=== PATIENT | female | born 1990 | race American Indian/Alaskan Native ===

== ENCOUNTER 2016-08-19 13:26 | Inpatient (IN) | payer MEDICAID ==
--- NOTE | 2016-08-19 14:04 | ED PDOC ---
Arrival/HPI - General Chief Complaint: High Blood Sugar Time Seen by Provider: 08/19/16 13:41 Historian: Patient - History of Present Illness Narrative History of Present Illness (Text): 08/19/16 14:01 26 year old female whose past medical history includes diabetes presents to the emergency department complaining of fluctuating blood sugar for the past 2 weeks. She states she has seen her PMD and is on Lantus. Patient reports her blood sugar has been as low as 200 and as high as 600. She states she feels dizzy at times, weak, thirsty. PMD: Dr. Vivek Christensen Time/Duration: > week Symptom Onset: Gradual Symptom Course: Unchanged Modifying Factors (Text): None Associated Symptoms (Text): None Past Medical History - Provider Review Nursing Documentation Reviewed: Yes - Infectious Disease Hx of Infectious Diseases: None - Tetanus Immunization Tetanus Immunization: Unknown - Cardiac Hx Hypertension: Yes - Pulmonary Hx Respiratory Disorders: No - Neurological Hx Dizziness: Yes - HEENT Hx HEENT Disorder: No - Renal Hx Renal Disorder: No - Endocrine/Metabolic Hx Diabetes Mellitus Type 2: Yes - Hematological/Oncological Hx Blood Disorders: No - Integumentary Hx Dermatological Disorder: No - Musculoskeletal/Rheumatological Hx Falls: No - Gastrointestinal Hx Gastrointestinal Disorders: No - Genitourinary/Gynecological Hx Genitourinary Disorders: No - Psychiatric Hx Anxiety: Yes Hx Bipolar Disorder: Yes Hx Depression: Yes Hx Substance Use: No - Past Surgical History Past Surgical History: Non-Contributing - Anesthesia Hx Anesthesia: No - Suicidal Assessment Feels Threatened In Home Enviroment: No Family/Social History - Physician Review Nursing Documentation Reviewed: Yes Family/Social History: Unknown Family HX Smoking Status: Never Smoked Hx Alcohol Use: No Hx Substance Use: No Allergies/Home Meds Allergies/Adverse Reactions: Allergies No Known Allergies Allergy (Verified 08/19/16 13:37) Home Medications: Home Meds Medication Instructions Recorded Confirmed Cholecalciferol (Vitamin D3) 1 cap PO Sat08/19/16 08/19/16 [Vitamin D3] Empagliflozin [Jardiance] 10 mg PO DAILY 08/19/16 08/19/16 Enalapril Maleate [Vasotec] 5 mg PO DAILY 08/19/16 08/19/16 Insulin Glargine, Recombina 10 unit SC BID 08/19/16 08/19/16 [Lantus] Review of Systems - Physician Review All systems were reviewed & negative as marked: Yes - Review of Systems Constitutional: Other (Fluctuating blood sugar measurements) Respiratory: absent: SOB Cardiovascular: absent: Chest Pain Gastrointestinal: absent: Abdominal Pain, Vomiting Neurological: absent: Dizziness Physical Exam - Physical Exam Narrative Physical Exam (Text): Constitutional: No acute distress. Head: Normocephalic. Atraumatic. Eyes: PERRL. ENT: Moist mucous membranes. Neck: Supple. Cardiovascular: Regular rate. Chest: No tenderness. Respiratory: Clear to auscultation bilaterally. GI: Soft. Nontender. Nondistended. Back: No CVA tenderness. Musculoskeletal: No tenderness or swelling of extremities. Skin: No rash. Neurologic: Alert, no focal deficit. Vital Signs Reviewed: Yes Vital Signs Temp Pulse Resp BP Pulse Ox 08/19/16 16:56 89 18 135/74 97 08/19/16 15:26 98 H 18 138/79 97 08/19/16 13:42 98.9 F 104 H 17 141/84 97 Temperature: Afebrile Blood Pressure: Normal Pulse: Tachycardic Respiratory Rate: Normal Appearance: Positive for: Well-Appearing, Non-Toxic, Comfortable Pain Distress: None Mental Status: Positive for: Alert and Oriented X 3 Finger Stick Blood Glucose: 313 Medical Decision Making ED Course and Treatment: Impression: 26 year old female whose past medical history includes diabetes presents to the emergency department complaining of fluctuating blood sugar for the past 2 weeks. Differential Diagnosis include but are not limited to: Plan: -- Labs -- Reassess and disposition Prior Visits: Notes and results from previous visits were reviewed. Patient last seen in ED on 08/11/16 for increased thirst, urinary frequency and blurry vision and discharged home. Progress Notes: The patient is with pH 7.28 on VBG pH and bicarb 20 with ketones >80 in urine. Patient still appears well but with evidence of dehydration, mild DKA. Accepted for admission by Dr. Cam to hospitalist service. IVF initiated in ER. - Lab Interpretations Lab Results: 08/19/16 14:20 08/19/16 14:20 Lab Results 08/19/16 14:40: Urine Color Straw, Urine Appearance Clear, Urine pH 6.0, Ur Specific [place] 1.015, Urine Protein Negative, Urine Glucose (UA) >=1000, Urine Ketones >=80, Urine Blood Trace-lysed H, Urine Nitrate Negative, Urine Bilirubin Negative, Urine Urobilinogen 0.2, Ur Leukocyte Esterase Negative, Urine RBC 2 - 5, Urine WBC 2 - 5, Ur Epithelial Cells 6 - 8 08/19/16 14:20: Sodium 134, Potassium 4.4, Chloride 97 L, Carbon Dioxide 20 L, Anion Gap 21 H, BUN 12, Creatinine 0.7, Est GFR ( Amer) > 60, Est GFR ( Non-Af Amer) > 60, Random Glucose 347 H* D, Calcium 9.9, Total Bilirubin 0.7, AST 19, ALT 31, Alkaline Phosphatase 106, Total Protein 8.5 H, Albumin 4.5, Globulin 4.0, Albumin/Globulin Ratio 1.1 08/19/16 14:20: pO2 40, VBG pH 7.28 L, VBG pCO2 48.0, VBG HCO3 22.6, VBG O2 Sat (Calc) 73.4 H, VBG Base Excess -4.4 L 08/19/16 14:20: WBC 6.0, RBC 4.71, Hgb 14.6, Hct 41.2, MCV 87.5, MCH 31.0, MCHC 35.4, RDW 12.9, Plt Count 301, MPV 11.3 H, Gran % 60.0, Lymph % (Auto) 33.2, Harper % (Auto) 6.0, Eos % (Auto) 0.5 L, Baso % (Auto) 0.3, Gran # 3.60, Lymph # 2.0, Harper # 0.4, Eos # 0.0, Baso # 0.02 - Medication Orders Current Medication Orders: Heparin Sodium (Porcine) (Heparin) 5,000 units SC Q12 [facility] PRN Reason: Protocol Sodium Chloride (Sodium Chloride 0.9%) 1,000 mls @ 125 mls/hr IV .Q8H [facility] Last Admin: 08/19/16 17:13 Dose: 125 mls/hr Insulin Detemir (Levemir) 5 unit SC Q12H [facility] Insulin Human Regular (Humulin R Med) 0 units SC ACHS [facility] PRN Reason: Protocol Lisinopril (Zestril) 5 mg PO DAILY [facility] Pantoprazole Sodium (Protonix Ec Tab) 40 mg PO 0630 [facility] Discontinued Medications Sodium Chloride (Sodium Chloride 0.9%) 1,000 mls @ 999 mls/hr IV .Q1H1M [facility] Stop: 08/19/16 15:51 Last Admin: 08/19/16 15:30 Dose: 999 mls/hr - Scribe Statement The provider has reviewed the documentation as recorded by the Halina Hernandez Provider Scribe Attestation: All medical record entries made by the Halina were at my direction and personally dictated by me. I have reviewed the chart and agree that the record accurately reflects my personal performance of the history, physical exam, medical decision making, and the department course for this patient. I have also personally directed, reviewed, and agree with the discharge instructions and disposition. Disposition/Present on Arrival - Present on Arrival Any Indicators Present on Arrival: Yes History of DVT/PE: No History of Uncontrolled Diabetes: Yes Urinary Catheter: No History of Decub. Ulcer: No History Surgical Site Infection Following: None - Disposition Have Diagnosis and Disposition been Completed?: Yes Diagnosis: Hyperglycemia due to type 2 diabetes mellitus, Dehydration Disposition: HOSPITALIZED Disposition Time: 15:29 Patient Plan: Admission Condition: FAIR
[2016-08-19 14:27] LABS: ADD MANUAL DIFF? NO
[2016-08-19 14:31] LABS: BASO # 0.02 K/mm3 (0.0-2.0); BASO % 0.3 % (0.0-3.0); EOS % 0.5 % (1.5-5.0); HEMATOCRIT 41.2 % (36.0-48.0); LYMPH % 33.2 % (22.0-35.0); MEAN CELL VOLUME 87.5 fL (80.0-105.0); MEAN CORPUSCULAR HGB CONC 35.4 g/dl (31.0-37.0); MEAN PLATELET VOLUME 11.3 fl (7.0-11.0); MONO # 0.4 (0.1-0.6); PLATELET COUNT 301 10^3/uL (120.0-450.0); RED CELL DISTRIBUTION WIDTH 12.9 % (11.5-14.5)
[2016-08-19 14:33] LABS: VENOUS BLOOD GAS BASE EXCESS -4.4 mmol/L (0.0-2.0); VENOUS BLOOD PH 7.28 (7.32-7.43)
[2016-08-19 14:41] LABS: ALB/GLOB RATIO 1.1 (1.1-1.8); ALKALINE PHOSPHATASE 106 U/L (38-133); ALT/SGPT 31 U/L (7-56); AST/SGOT 19 U/L (15-39); BILIRUBIN,TOTAL 0.7 mg/dL (0.2-1.3); BLOOD UREA NITROGEN 12 mg/dL (7-21); CALCIUM 9.9 mg/dL (8.4-10.5); CARBON DIOXIDE 20 mmol/L (21-33); CHLORIDE 97 mmol/L (98-107); GFR AFRICAN-AMERICAN > 60; POTASSIUM 4.4 mmol/L (3.6-5.0); SODIUM 134 mmol/L (132-148); TOTAL PROTEIN 8.5 g/dL (5.8-8.3)
[2016-08-19 14:44] LABS: GLUCOSE,RANDOM 347 mg/dL (70-110)
[2016-08-19] MEDS ORDERED: Sodium Chloride 0.9% 1,000 ML IV STA (14:51)
[2016-08-19 14:59] LABS: URINE BILIRUBIN NEGATIVE (NEGATIVE); URINE BLOOD TRACE-LYSED (NEGATIVE); URINE GLUCOSE (UA) >=1000 mg/dL (NEGATIVE); URINE KETONE >=80 mg/dL (NEGATIVE); URINE LEUKOCYTE ESTERASE NEGATIVE Leu/uL (NEGATIVE); URINE PROTEIN NEGATIVE mg/dL (<30 mg/dL); URINE UROBILINOGEN 0.2 E.U./dL (<1 E.U./dL)
[2016-08-19 15:00] LABS: URINE APPEARANCE CLEAR (CLEAR); URINE COLOR STRAW (YELLOW)
[2016-08-19 16:46] LABS: ARTERIAL BLOOD GAS HCO3 14.4 mmol/L (21-28); ARTERIAL BLOOD GAS O2 CAPACITY 18.4 mL/dl (16-24); ARTERIAL BLOOD GAS O2 CONTENT 18.1 ML/dl (15-23); ARTERIAL BLOOD GAS PH 7.32 (7.35-7.45); CARBOXYHEMOGLOBIN 1.7 % (0.5-1.5); HHB 1.6 % (0-5); METHEMOGLOBIN 0.7 % (0.0-3.0)
[2016-08-19] MEDS ORDERED: Sodium Chloride 0.9% 1,000 ML IV SCH (17:00)
[2016-08-19 17:21] LABS: ALB/GLOB RATIO 1.1 (1.1-1.8); ALKALINE PHOSPHATASE 94 U/L (38-133); ALT/SGPT 30 U/L (7-56); AST/SGOT 20 U/L (15-39); BILIRUBIN,TOTAL 0.6 mg/dL (0.2-1.3); BLOOD UREA NITROGEN 11 mg/dL (7-21); CALCIUM 8.9 mg/dL (8.4-10.5); CARBON DIOXIDE 18 mmol/L (21-33); CHLORIDE 103 mmol/L (98-107); GFR AFRICAN-AMERICAN > 60; GLUCOSE,RANDOM 196 mg/dL (70-110); POTASSIUM 4.2 mmol/L (3.6-5.0); SODIUM 135 mmol/L (132-148); TOTAL PROTEIN 8.1 g/dL (5.8-8.3)
--- NOTE | 2016-08-19 17:59 | CP.PCM.HP ---
History of Present Illness - History of Present Illness History of Present Illness: CC: "High sugars at home" HPI: This is a 26 year old female with past medical history of recently diagnosed hypertension and diabetes who presents with complaint of generalized weakness and elevated blood sugars at home. She states she was recently started on insulin about 2 weeks ago. Her fingersticks at home have been ranging above 500. She admits to generalized fatigue, polyuria, polydipsia and blurred vision. She denies any fever, chills, chest pain, abdominal pain, nausea or vomiting. She admits to getting dyspneic with exertion at times. PMD: Dr. Christensen PMH: hypertension PSH: denies Home Medications: vasotec 5 mg, lantus 10 units bid, jardiance 10 mg daily Social History: lives with family; denies smoking, alcohol or illicit drug use ; works at [employer] Present on Admission - Present on Admission Any Indicators Present on Admission: Yes History of Uncontrolled Diabetes: Yes Review of Systems - Review of Systems All systems: reviewed and no additional remarkable complaints except - Constitutional Constitutional: As Per HPI - EENT Eyes: absent: Blurred Vision Ears: absent: Dizziness - Cardiovascular Cardiovascular: Dyspnea on Exertion. absent: Chest Pain, Dyspnea, Edema - Respiratory Respiratory: absent: Cough, Dyspnea - Gastrointestinal Gastrointestinal: absent: Abdominal Pain, Nausea, Vomiting - Genitourinary Genitourinary: As Per HPI - Musculoskeletal Musculoskeletal: As Per HPI - Neurological Neurological: Weakness - Endocrine Endocrine: As Per HPI, Polydipsia, Polyuria Past Patient History - Infectious Disease Hx of Infectious Diseases: None - Tetanus Immunizations Tetanus Immunization: Unknown - Past Medical History & Family History Past Medical History?: Yes - Past Social History Smoking Status: Never Smoked Alcohol: None Drugs: Denies Home Situation {Lives}: With Family - CARDIAC Hx Hypertension: Yes - PULMONARY Hx Respiratory Disorders: No - NEUROLOGICAL Hx Dizziness: Yes - HEENT Hx HEENT Problems: No - RENAL Hx Chronic Kidney Disease: No - ENDOCRINE/METABOLIC Hx Diabetes Mellitus Type 2: Yes - HEMATOLOGICAL/ONCOLOGICAL Hx Blood Disorders: No - INTEGUMENTARY Hx Dermatological Problems: No - MUSCULOSKELETAL/RHEUMATOLOGICAL Hx Falls: No - GASTROINTESTINAL Hx Gastrointestinal Disorders: No - GENITOURINARY/GYNECOLOGICAL Hx Genitourinary Disorders: No - PSYCHIATRIC Hx Substance Use: No - SURGICAL HISTORY Hx Surgeries: No - ANESTHESIA Hx Anesthesia: No Meds Allergies/Adverse Reactions: Allergies Allergy/AdvReac Type Severity Reaction Status Date / Time No Known Allergies Allergy Verified 08/19/16 13:37 Physical Exam - Constitutional Appears: Well, No Acute Distress - Head Exam Head Exam: NORMAL INSPECTION - ENT Exam ENT Exam: Mucous Membranes Moist - Neck Exam Neck exam: Positive for: Full Rom - Respiratory Exam Respiratory Exam: Clear to Auscultation Bilateral. absent: Rales, Wheezes - Cardiovascular Exam Cardiovascular Exam: REGULAR RHYTHM, +S1, +S2 - GI/Abdominal Exam GI & Abdominal Exam: Normal Bowel Sounds, Soft. absent: Organomegaly, Tenderness - Extremities Exam Extremities exam: Positive for: normal inspection - Neurological Exam Neurological exam: Alert, Oriented x3 - Psychiatric Exam Psychiatric exam: Normal Affect, Normal Mood Results - Vital Signs Recent Vital Signs: Last Vital Signs Temp 98.9 F 08/19/16 13:42 Pulse 98 H 08/19/16 15:26 Resp 18 08/19/16 15:26 BP 138/79 08/19/16 15:26 Pulse Ox 97 08/19/16 15:26 - Labs Result Diagrams: 08/19/16 14:20 08/19/16 17:00 Labs: Laboratory Results - last 24 hr 08/19/16 08/19/16 08/19/16 14:20 14:20 14:20 WBC 6.0 RBC 4.71 Hgb 14.6 Hct 41.2 MCV 87.5 MCH 31.0 MCHC 35.4 RDW 12.9 Plt Count 301 MPV 11.3 H Gran % 60.0 Lymph % (Auto) 33.2 Gregg % (Auto) 6.0 Eos % (Auto) 0.5 L Baso % (Auto) 0.3 Gran # 3.60 Lymph # 2.0 Gregg # 0.4 Eos # 0.0 Baso # 0.02 pO2 40 VBG pH 7.28 L VBG pCO2 48.0 VBG HCO3 22.6 VBG O2 Sat (Calc) 73.4 H VBG Base Excess -4.4 L Sodium 134 Potassium 4.4 Chloride 97 L Carbon Dioxide 20 L Anion Gap 21 H BUN 12 Creatinine 0.7 Est GFR ( Amer) > 60 Est GFR (Non-Af Amer) > 60 Random Glucose 347 H* D Calcium 9.9 Total Bilirubin 0.7 AST 19 ALT 31 Alkaline Phosphatase 106 Total Protein 8.5 H Albumin 4.5 Globulin 4.0 Albumin/Globulin Ratio 1.1 Urine Color Urine Appearance Urine pH Ur Specific [place] Urine Protein Urine Glucose (UA) Urine Ketones Urine Blood Urine Nitrate Urine Bilirubin Urine Urobilinogen Ur Leukocyte Esterase Urine RBC Urine WBC Ur Epithelial Cells 08/19/16 14:40 WBC RBC Hgb Hct MCV MCH MCHC RDW Plt Count MPV Gran % Lymph % (Auto) Gregg % (Auto) Eos % (Auto) Baso % (Auto) Gran # Lymph # Gregg # Eos # Baso # pO2 VBG pH VBG pCO2 VBG HCO3 VBG O2 Sat (Calc) VBG Base Excess Sodium Potassium Chloride Carbon Dioxide Anion Gap BUN Creatinine Est GFR ( Amer) Est GFR (Non-Af Amer) Random Glucose Calcium Total Bilirubin AST ALT Alkaline Phosphatase Total Protein Albumin Globulin Albumin/Globulin Ratio Urine Color Straw Urine Appearance Clear Urine pH 6.0 Ur Specific [place] 1.015 Urine Protein Negative Urine Glucose (UA) >=1000 Urine Ketones >=80 Urine Blood Trace-lysed H Urine Nitrate Negative Urine Bilirubin Negative Urine Urobilinogen 0.2 Ur Leukocyte Esterase Negative Urine RBC 2 - 5 Urine WBC 2 - 5 Ur Epithelial Cells 6 - 8 - EKG Data EKG comments: not available in ER Assessment & Plan - Assessment and Plan (Free Text) Plan: 26 year old female with past medical history of diabetes and hypertension who presents with uncontrolled blood sugars at home. Complaint of generalized weakness, polyuria, polydipsia. CXR is pending. 1. Uncontrolled diabetes - Initial anion gap was mildly elevated at 17. + Ketones in UA. Consider early DKA. She received iv bolus in ER. Repeat anion gap is improved to 14. Will continue to aggressive ivf. Resume lantus and check A1c. Continue with insulin ss and fingerstick checks. 2. Hypertension - Continue with enalapril. 3. Obesity - Counselled on diet modifications, weight loss and exercise. Lipid panel ordered for AM. Continue with protonix for GI prophylaxis and heparin for DVT prophylaxis.
[2016-08-19 20:32] VITALS: BMI 37.7
[2016-08-19] MEDS ORDERED: Insulin Detemir 100 units/ml Vial (Levemir) SC SCH (22:00)
[2016-08-19] MEDS: Insulin Detemir 100 units/ml Vial (Levemir) SC SCH (22:03)
[2016-08-19] MEDS: Insulin Reg-MEDIUM-Coverage SC SCH (22:03)
[2016-08-20] MEDS: Pantoprazole 40 mg EC Tab PO SCH (05:39)
--- NOTE | 2016-08-20 07:13 | RAD ---
HISTORY: dyspnea COMPARISON: Chest x-ray performed 12/23/13 TECHNIQUE: Chest, one view. FINDINGS: Examination limited by habitus and hypoinflation. The patient's chin obscures evaluation of the lung apices. LUNGS: No focal consolidation. Please note that chest x-ray has limited sensitivity for the detection of pulmonary masses. PLEURA: No significant pleural effusion identified. No definite pneumothorax . CARDIOVASCULAR: Heart size appears top normal. OSSEOUS STRUCTURES: No acute osseous abnormality identified. VISUALIZED UPPER ABDOMEN: Unremarkable. OTHER FINDINGS: None. IMPRESSION: No focal consolidation, significant pleural effusion, or definite pneumothorax identified.
[2016-08-20 07:51] VITALS: RESP 20
[2016-08-20] MEDS: Insulin Reg-MEDIUM-Coverage SC SCH ×4 (08:00→22:25)
[2016-08-20 08:57] LABS: HEMATOCRIT 35.6 % (36.0-48.0); MEAN CELL VOLUME 88.6 fL (80.0-105.0); MEAN CORPUSCULAR HEMOGLOBIN 30.6 pg (25.0-35.0); MEAN CORPUSCULAR HGB CONC 34.6 g/dl (31.0-37.0); MEAN PLATELET VOLUME 11.2 fl (7.0-11.0); WHITE BLOOD COUNT 3.7 10^3/ul (4.5-11.0)
[2016-08-20 09:08] LABS: ALB/GLOB RATIO 1.1 (1.1-1.8); ALKALINE PHOSPHATASE 82 U/L (38-133); ALT/SGPT 37 U/L (7-56); AST/SGOT 18 U/L (15-39); BILIRUBIN,TOTAL 0.7 mg/dL (0.2-1.3); BLOOD UREA NITROGEN 8 mg/dL (7-21); CALCIUM 8.8 mg/dL (8.4-10.5); CARBON DIOXIDE 19 mmol/L (21-33); CHLORIDE 106 mmol/L (98-107); CHOLESTEROL 165 mg/dL (130-200); GFR AFRICAN-AMERICAN > 60; GLUCOSE,RANDOM 221 mg/dL (70-110); POTASSIUM 4.2 mmol/L (3.6-5.0); SODIUM 135 mmol/L (132-148); TOTAL PROTEIN 6.9 g/dL (5.8-8.3)
[2016-08-20] MEDS: Insulin Detemir 100 units/ml Vial (Levemir) SC SCH ×2 (10:19→22:23)
[2016-08-20] MEDS: Omega-3-Acid Ethyl Esters 1 GM Cap PO SCH ×2 (10:19→17:32)
--- NOTE | 2016-08-20 15:31 | CP.PCM.DIS ---
Provider - Provider Date of Admission: 08/19/16 16:12 Attending physician: Dawit Levin MD Primary care physician: Vivek Christensen Consults: none Time Spent in preparation of Discharge (in minutes): 25 Hospital Course - Lab Results Lab Results: Most Recent Lab Values WBC 3.7 10^3/ul (4.5-11.0) L D 08/20/16 08:15 RBC 4.02 10^6/uL (3.5-6.1) 08/20/16 08:15 Hgb 12.3 gm/dL (12.0-16.0) 08/20/16 08:15 Hct 35.6 % (36.0-48.0) L 08/20/16 08:15 MCV 88.6 fL (80.0-105.0) 08/20/16 08:15 MCH 30.6 pg (25.0-35.0) 08/20/16 08:15 MCHC 34.6 g/dl (31.0-37.0) 08/20/16 08:15 RDW 13.0 % (11.5-14.5) 08/20/16 08:15 Plt Count 245 10^3/uL (120.0-450.0) 08/20/16 08:15 MPV 11.2 fl (7.0-11.0) H 08/20/16 08:15 Gran % 60.0 % (50.0-68.0) 08/19/16 14:20 Lymph % (Auto) 33.2 % (22.0-35.0) 08/19/16 14:20 Kay % (Auto) 6.0 % (1.0-6.0) 08/19/16 14:20 Eos % (Auto) 0.5 % (1.5-5.0) L 08/19/16 14:20 Baso % (Auto) 0.3 % (0.0-3.0) 08/19/16 14:20 Gran # 3.60 (1.4-6.5) 08/19/16 14:20 Lymph # 2.0 (1.2-3.4) 08/19/16 14:20 Kay # 0.4 (0.1-0.6) 08/19/16 14:20 Eos # 0.0 (0.0-0.7) 08/19/16 14:20 Baso # 0.02 K/mm3 (0.0-2.0) 08/19/16 14:20 pCO2 28 mm/Hg (35-45) L 08/19/16 16:35 pO2 84.0 mm/Hg (80-100) 08/19/16 16:35 HCO3 14.4 mmol/L (21-28) L 08/19/16 16:35 ABG pH 7.32 (7.35-7.45) L 08/19/16 16:35 ABG Total CO2 15.3 mmol.L (22-28) L 08/19/16 16:35 ABG O2 Saturation 98.4 % (95-98) H 08/19/16 16:35 ABG O2 Content 18.1 ML/dl (15-23) 08/19/16 16:35 ABG Base Excess -10.2 mmol/L (-2.0-3.0) L 08/19/16 16:35 ABG Hemoglobin 13.4 g/dL (11.7-17.4) 08/19/16 16:35 ABG Carboxyhemoglobin 1.7 % (0.5-1.5) H 08/19/16 16:35 POC ABG HHb (Measured) 1.6 % (0-5) 08/19/16 16:35 ABG Methemoglobin 0.7 % (0.0-3.0) 08/19/16 16:35 ABG O2 Capacity 18.4 mL/dl (16-24) 08/19/16 16:35 VBG pH 7.28 (7.32-7.43) L 08/19/16 14:20 VBG pCO2 48.0 (40-60) 08/19/16 14:20 VBG HCO3 22.6 mmol/l (21-28) 08/19/16 14:20 VBG O2 Sat (Calc) 73.4 % (40-65) H 08/19/16 14:20 VBG Base Excess -4.4 mmol/L (0.0-2.0) L 08/19/16 14:20 Hgb O2 Saturation 96.0 % (95.0-98.0) 08/19/16 16:35 FiO2 21.0 % 08/19/16 16:35 Sodium 135 mmol/L (132-148) 08/20/16 08:15 Potassium 4.2 mmol/L (3.6-5.0) 08/20/16 08:15 Chloride 106 mmol/L (98-107) 08/20/16 08:15 Carbon Dioxide 19 mmol/L (21-33) L 08/20/16 08:15 Anion Gap 14 (10-20) 08/20/16 08:15 BUN 8 mg/dL (7-21) 08/20/16 08:15 Creatinine 0.6 mg/dL (0.5-1.4) 08/20/16 08:15 Est GFR ( Amer) > 60 08/20/16 08:15 Est GFR (Non-Af Amer) > 60 08/20/16 08:15 POC Glucose (mg/dL) 184 mg/dL (65-110) H 08/20/16 07:21 Random Glucose 221 mg/dL (70-110) H 08/20/16 08:15 Hemoglobin A1c 10.0 % (4.2-6.5) H D 08/19/16 14:30 Calcium 8.8 mg/dL (8.4-10.5) 08/20/16 08:15 Total Bilirubin 0.7 mg/dL (0.2-1.3) 08/20/16 08:15 AST 18 U/L (15-39) 08/20/16 08:15 ALT 37 U/L (7-56) 08/20/16 08:15 Alkaline Phosphatase 82 U/L (38-133) 08/20/16 08:15 Total Protein 6.9 g/dL (5.8-8.3) 08/20/16 08:15 Albumin 3.6 g/dL (3.0-4.8) 08/20/16 08:15 Globulin 3.3 gm/dL 08/20/16 08:15 Albumin/Globulin Ratio 1.1 (1.1-1.8) 08/20/16 08:15 Triglycerides 312 mg/dL (35-160) H 08/20/16 08:15 Cholesterol 165 mg/dL (130-200) 08/20/16 08:15 LDL Cholesterol Direct 92 mg/dL (0-129) 08/20/16 08:15 HDL Cholesterol 30 mg/dL (29-60) 08/20/16 08:15 Urine Color Straw (YELLOW) 08/19/16 14:40 Urine Appearance Clear (CLEAR) 08/19/16 14:40 Urine pH 6.0 (4.7-8.0) 08/19/16 14:40 Ur Specific [place] 1.015 (1.005-1.035) 08/19/16 14:40 Urine Protein Negative mg/dL (<30 mg/dL) 08/19/16 14:40 Urine Glucose (UA) >=1000 mg/dL (NEGATIVE) 08/19/16 14:40 Urine Ketones >=80 mg/dL (NEGATIVE) 08/19/16 14:40 Urine Blood Trace-lysed (NEGATIVE) H 08/19/16 14:40 Urine Nitrate Negative (NEGATIVE) 08/19/16 14:40 Urine Bilirubin Negative (NEGATIVE) 08/19/16 14:40 Urine Urobilinogen 0.2 E.U./dL (<1 E.U./dL) 08/19/16 14:40 Ur Leukocyte Esterase Negative Bhavesh/uL (NEGATIVE) 08/19/16 14:40 Urine RBC 2 - 5 /hpf (0-2) 08/19/16 14:40 Urine WBC 2 - 5 /hpf (0-6) 08/19/16 14:40 Ur Epithelial Cells 6 - 8 /hpf (0-5) 08/19/16 14:40 - Hospital Course Hospital Course: 26 year old female with past medical history of diabetes and hypertension who presents with uncontrolled blood sugars at home. Complaint of generalized weakness, polyuria, polydipsia. CXR is negative for acute findings. Transferred to [facility] for dehydration and diabetic hyperglycemia. 1. Uncontrolled diabetes - Initial anion gap was mildly elevated at 17. She received iv bolus in ER. Repeat anion gap is improved to 14. Will continue to aggressive ivf. Lantus resumed and increased to 15 u BID during admission. ISS and accuchecks started. Blood sugars improved throughout admission. Diabetic nurse counseling session during admission. Hypertension - treated with home enalapril. Obesity - Counselled on diet modifications, weight loss and exercise. Pt had a RUQ pain complaint, for which U/S ordered and cholelithiasis found, no findings consistent w/ cholecystitis, and no dilated CBD. Pt remained afebrile throughout admission. Pt discharged in good condition with following instructions: You are discharged home. Please follow both a low fat diet and diabetic diet. Please see your primary care physician Dr. Nevin Christensen within a week of leaving the hospital. Please get follow-up care including yearly ophthalmological and foot exams. Please continue your home medications with the exception of Levemir insulin, for which your dose is increased to 12 u subcutaneously every 12 hours and a new paper prescription is provided. Please return to emergency department for worsening of symptoms. Discharge Exam - Head Exam Head Exam: NORMAL INSPECTION - Eye Exam Eye Exam: EOMI, Normal appearance Pupil Exam: NORMAL ACCOMODATION, PERRL - ENT Exam ENT Exam: Mucous Membranes Moist, Normal Exam - Respiratory Exam Respiratory Exam: Clear to PA & Lateral, UNREMARKABLE - Cardiovascular Exam Cardiovascular Exam: +S1, +S2. absent: Bradycardia - GI/Abdominal Exam GI & Abdominal Exam: Soft. absent: Tenderness - Exam External exam: absent: Ecchymosis, Erythema - Extremities Exam Extremities exam: normal capillary refill, pedal pulses present - Neurological Exam Neurological exam: Alert, Oriented x3 - Skin Skin Exam: Intact, Normal Color Discharge Plan - Discharge Medications Prescriptions: Insulin Detemir [Levemir] 15 units SC Q12 #4 vial - Follow Up Plan Condition: GOOD Disposition: HOME/ ROUTINE Instructions: Dehydration (DC), Dehydration (GEN), Diabetes Mellitus Type 2 in Adults (DC), Fall Prevention for Older Adults (GEN) Additional Instructions: You are discharged home. Please follow both a low fat diet and diabetic diet. Please see your primary care physician Dr. Nevin Christensen within a week of leaving the hospital. Please get follow-up care including yearly ophthalmological and foot exams. Please continue your home medications with the exception of Levemir insulin, for which your dose is increased to 12 u subcutaneously every 12 hours and a new paper prescription is provided. Please return to emergency department for worsening of symptoms. Referrals: Vivek Christensen MD [Primary Care Provider] -
--- NOTE | 2016-08-20 17:15 | CP.PCM.PN ---
<Christine Jackson - Last Filed: 08/20/16 23:56> Subjective - Date & Time of Evaluation Date of Evaluation: 08/20/16 Time of Evaluation: 08:25 - Subjective Subjective: Pt seen and evaluated at bedside. Denies N/V, fever. Denies hematuria or pyuria. Afebrile overnight. Objective - Vital Signs/Intake and Output Vital Signs (last 24 hours): Temp Pulse Resp BP Pulse Ox 97.5 F L 72 20 107/75 99 08/20/16 07:50 08/20/16 07:50 08/20/16 07:50 08/20/16 10:14 08/20/16 07:50 Intake and Output: 08/20/16 08/20/16 06:59 18:59 Intake Total 480 240 Balance 480 240 - Medications Medications: Current Medications Atorvastatin Calcium (Lipitor) 10 mg PO DIN [facility] Heparin Sodium (Porcine) (Heparin) 5,000 units SC Q12 [facility] PRN Reason: Protocol Last Admin: 08/20/16 10:12 Dose: 5,000 units Insulin Detemir (Levemir) 12 unit SC Q12 [facility] Insulin Human Regular (Humulin R Med) 0 units SC ACHS [facility] PRN Reason: Protocol Last Admin: 08/20/16 08:00 Dose: 1 units Lisinopril (Zestril) 5 mg PO DAILY [facility] Last Admin: 08/20/16 10:14 Dose: 5 mg Empagliflozin [ Jardiance] 10 Mg ( Home Med) 10 mg PO DAILY [facility] [id number] Ethyl Esters (Lovaza) 1 gm PO BID [facility] Last Admin: 08/20/16 10:19 Dose: 1 gm Pantoprazole Sodium (Protonix Ec Tab) 40 mg PO 0630 [facility] Last Admin: 08/20/16 05:39 Dose: 40 mg - Labs Labs: 08/20/16 08:15 08/20/16 08:15 - Constitutional Appears: Non-toxic, No Acute Distress - Head Exam Head Exam: ATRAUMATIC, NORMOCEPHALIC - Eye Exam Eye Exam: EOMI, Normal appearance - Respiratory Exam Respiratory Exam: Clear to Ausculation Bilateral, NORMAL BREATHING PATTERN - Cardiovascular Exam Cardiovascular Exam: +S1, +S2. absent: Bradycardia - GI/Abdominal Exam GI & Abdominal Exam: Soft, Tenderness Additional comments: Mild RUQ tenderness - Exam External exam: absent: Ecchymosis, Erythema - Extremities Exam Extremities Exam: Normal Capillary Refill. absent: Tenderness - Neurological Exam Neurological Exam: Alert, Awake - Skin Skin Exam: Normal Color, Warm Assessment and Plan - Assessment and Plan (Free Text) Plan: 26 year old female with past medical history of diabetes and hypertension who presents with uncontrolled blood sugars at home. Complaint of generalized weakness, polyuria, polydipsia. 1. Uncontrolled diabetes - Initial anion gap was mildly elevated at 17. + Ketones in UA. Received iv bolus in ER. Repeat anion gap is improved to 14. Lantus increased from 10 u BID to 12 u BID and A1c is now 10. Continue with insulin ss and fingerstick checks. 2. Hypertension - enalapril. 3. Obesity - Counselled on diet modifications, weight loss and exercise. Lipid panel showed LDL in 90s and triglycerides in 300s. Fish oil and lipitor added on. 4. RUQ pain/tenderness: gallbladder U/S pending. Continue with protonix for GI prophylaxis and heparin for DVT prophylaxis. <Poonam FELICIANO,Paulobronxdereck - Last Filed: 08/21/16 11:43> Objective - Vital Signs/Intake and Output Vital Signs (last 24 hours): Temp Pulse Resp BP Pulse Ox 98.2 F 80 20 120/85 100 08/21/16 08:58 08/21/16 09:50 08/21/16 08:58 08/21/16 09:50 08/21/16 08:58 Intake and Output: 08/21/16 08/21/16 06:59 18:59 Intake Total 600 Balance 600 - Medications Medications: Current Medications Atorvastatin Calcium (Lipitor) 10 mg PO DIN [facility] Last Admin: 08/20/16 17:31 Dose: 10 mg Heparin Sodium (Porcine) (Heparin) 5,000 units SC Q12 [facility] PRN Reason: Protocol Last Admin: 08/21/16 09:45 Dose: 5,000 units Sodium Chloride (Sodium Chloride 0.9%) 1,000 mls @ 200 mls/hr IV .Q5H STA Stop: 08/21/16 14:14 Last Admin: 08/21/16 09:47 Dose: 200 mls/hr Insulin Detemir (Levemir) 15 unit SC Q12 [facility] Insulin Human Regular (Humulin R Med) 0 units SC ACHS [facility] PRN Reason: Protocol Last Admin: 08/21/16 08:33 Dose: 1 units Lisinopril (Zestril) 5 mg PO DAILY [facility] Last Admin: 08/21/16 09:50 Dose: 5 mg Empagliflozin [ Jardiance] 10 Mg ( Home Med) 10 mg PO DAILY [facility] Last Admin: 08/21/16 09:45 Dose: Not Given Yfalv-3-Yazf Ethyl Esters (Lovaza) 1 gm PO BID [facility] Last Admin: 08/21/16 09:46 Dose: 1 gm Pantoprazole Sodium (Protonix Ec Tab) 40 mg PO 0630 [facility] Last Admin: 08/21/16 05:49 Dose: 40 mg - Labs Labs: 08/21/16 08:00 08/21/16 08:00 Attending/Attestation - Attestation I have personally seen and examined this patient.: Yes I have fully participated in the care of the patient.: Yes I have reviewed all pertinent clinical information, including history, physical exam and plan: Yes Notes (Text): 08/21/16 11:41 Patient was seen and examined with medical affairs specialist .Agreed with resident assessment and plan. Patient blood sugars are running high, we will increase dose of Lantus to 12 units SC BID. She is c/o right upper quadrant pain, we will order gall badder USG, if normal can be discharged home. The issue of dietary and medication compliance was discussed with patient. Management plan was discussed in detail with patient Education was provided.
[2016-08-21] MEDS: Pantoprazole 40 mg EC Tab PO SCH (05:49)
[2016-08-21] MEDS: Insulin Reg-MEDIUM-Coverage SC SCH ×3 (08:33→17:09)
[2016-08-21 08:37] LABS: ADD MANUAL DIFF? NO
[2016-08-21 08:40] LABS: BASO # 0.02 K/mm3 (0.0-2.0); BASO % 0.5 % (0.0-3.0); EOS # 0.1 (0.0-0.7); EOS % 1.4 % (1.5-5.0); GRAN # 1.62 (1.4-6.5); GRAN % 44.3 % (50.0-68.0); LYMPH # 1.6 (1.2-3.4); LYMPH % 44.5 % (22.0-35.0); MEAN CORPUSCULAR HEMOGLOBIN 30.6 pg (25.0-35.0); MEAN CORPUSCULAR HGB CONC 34.7 g/dl (31.0-37.0); MEAN PLATELET VOLUME 10.8 fl (7.0-11.0); MONO # 0.3 (0.1-0.6); MONO % 9.3 % (1.0-6.0); PLATELET COUNT 236 10^3/uL (120.0-450.0); RED CELL DISTRIBUTION WIDTH 12.7 % (11.5-14.5); WHITE BLOOD COUNT 3.7 10^3/ul (4.5-11.0)
[2016-08-21 08:58] LABS: ALB/GLOB RATIO 1.1 (1.1-1.8); ALKALINE PHOSPHATASE 93 U/L (38-133); ALT/SGPT 37 U/L (7-56); AST/SGOT 20 U/L (15-39); BILIRUBIN,TOTAL 0.5 mg/dL (0.2-1.3); BLOOD UREA NITROGEN 7 mg/dL (7-21); CALCIUM 9.2 mg/dL (8.4-10.5); CARBON DIOXIDE 18 mmol/L (21-33); CHLORIDE 102 mmol/L (95-110); GFR AFRICAN-AMERICAN > 60; GLUCOSE,RANDOM 254 mg/dL (70-110); POTASSIUM 4.2 mmol/L (3.6-5.0); SODIUM 134 mmol/L (132-148); TOTAL PROTEIN 7.7 g/dL (5.8-8.3)
[2016-08-21 08:59] VITALS: TEMP 98.2; O2SAT 100
[2016-08-21] MEDS ORDERED: Sodium Chloride 0.9% 1,000 ML IV STA (09:15)
[2016-08-21] MEDS: Insulin Detemir 100 units/ml Vial (Levemir) SC SCH (09:45)
[2016-08-21] MEDS: Omega-3-Acid Ethyl Esters 1 GM Cap PO SCH ×2 (09:46→17:10)
[2016-08-21 09:52] VITALS: BP 120/85; PULSE 80
[2016-08-21] MEDS ORDERED: Insulin Detemir 100 units/ml Vial (Levemir) SC SCH (10:19)
--- NOTE | 2016-08-21 13:20 | US ---
HISTORY: RUQ pain COMPARISON: None. TECHNIQUE: Sonographic evaluation of the right upper quadrant of the abdomen. FINDINGS: LIVER: Measures 15.2 cm in length. Diffusely increased echogenicity of the liver parenchyma. Consistent with fatty infiltration. No mass. No intrahepatic bile duct dilatation. GALLBLADDER: Partially contracted. Multiple gallstones identified. No mural thickening or pericholecystic fluid. Negative sonographic Cox's sign. COMMON BILE DUCT: Measures 3 mm. No stones. No dilatation. PANCREAS: Limited visualization. No gross abnormality. RIGHT KIDNEY: Measures 10.9 cm in length. Normal echogenicity. No calculus, mass, or hydronephrosis. AORTA: No aneurysmal dilatation. IVC: Unremarkable. OTHER FINDINGS: None . IMPRESSION: Fatty infiltration of the liver. Cholelithiasis without sonographic evidence of cholecystitis.
--- NOTE | 2016-08-21 14:57 | CP.PCM.DIS ---
<Christine Jackson - Last Filed: 08/21/16 15:17> Provider - Provider Date of Admission: 08/19/16 16:12 Attending physician: Dawit Levin MD Primary care physician: Vivek Christensen Consults: none Time Spent in preparation of Discharge (in minutes): 25 Hospital Course - Lab Results Lab Results: Most Recent Lab Values WBC 3.7 10^3/ul (4.5-11.0) L 08/21/16 08:00 RBC 4.32 10^6/uL (3.5-6.1) 08/21/16 08:00 Hgb 13.2 gm/dL (12.0-16.0) 08/21/16 08:00 Hct 38.0 % (36.0-48.0) 08/21/16 08:00 MCV 88.0 fL (80.0-105.0) 08/21/16 08:00 MCH 30.6 pg (25.0-35.0) 08/21/16 08:00 MCHC 34.7 g/dl (31.0-37.0) 08/21/16 08:00 RDW 12.7 % (11.5-14.5) 08/21/16 08:00 Plt Count 236 10^3/uL (120.0-450.0) 08/21/16 08:00 MPV 10.8 fl (7.0-11.0) 08/21/16 08:00 Gran % 44.3 % (50.0-68.0) L 08/21/16 08:00 Lymph % (Auto) 44.5 % (22.0-35.0) H 08/21/16 08:00 Dane % (Auto) 9.3 % (1.0-6.0) H 08/21/16 08:00 Eos % (Auto) 1.4 % (1.5-5.0) L 08/21/16 08:00 Baso % (Auto) 0.5 % (0.0-3.0) 08/21/16 08:00 Gran # 1.62 (1.4-6.5) 08/21/16 08:00 Lymph # 1.6 (1.2-3.4) 08/21/16 08:00 Dane # 0.3 (0.1-0.6) 08/21/16 08:00 Eos # 0.1 (0.0-0.7) 08/21/16 08:00 Baso # 0.02 K/mm3 (0.0-2.0) 08/21/16 08:00 pCO2 28 mm/Hg (35-45) L 08/19/16 16:35 pO2 84.0 mm/Hg (80-100) 08/19/16 16:35 HCO3 14.4 mmol/L (21-28) L 08/19/16 16:35 ABG pH 7.32 (7.35-7.45) L 08/19/16 16:35 ABG Total CO2 15.3 mmol.L (22-28) L 08/19/16 16:35 ABG O2 Saturation 98.4 % (95-98) H 08/19/16 16:35 ABG O2 Content 18.1 ML/dl (15-23) 08/19/16 16:35 ABG Base Excess -10.2 mmol/L (-2.0-3.0) L 08/19/16 16:35 ABG Hemoglobin 13.4 g/dL (11.7-17.4) 08/19/16 16:35 ABG Carboxyhemoglobin 1.7 % (0.5-1.5) H 08/19/16 16:35 POC ABG HHb (Measured) 1.6 % (0-5) 08/19/16 16:35 ABG Methemoglobin 0.7 % (0.0-3.0) 08/19/16 16:35 ABG O2 Capacity 18.4 mL/dl (16-24) 08/19/16 16:35 VBG pH 7.28 (7.32-7.43) L 08/19/16 14:20 VBG pCO2 48.0 (40-60) 08/19/16 14:20 VBG HCO3 22.6 mmol/l (21-28) 08/19/16 14:20 VBG O2 Sat (Calc) 73.4 % (40-65) H 08/19/16 14:20 VBG Base Excess -4.4 mmol/L (0.0-2.0) L 08/19/16 14:20 Hgb O2 Saturation 96.0 % (95.0-98.0) 08/19/16 16:35 FiO2 21.0 % 08/19/16 16:35 Sodium 134 mmol/L (132-148) 08/21/16 08:00 Potassium 4.2 mmol/L (3.6-5.0) 08/21/16 08:00 Chloride 102 mmol/L (95-110) 08/21/16 08:00 Carbon Dioxide 18 mmol/L (21-33) L 08/21/16 08:00 Anion Gap 18 (10-20) 08/21/16 08:00 BUN 7 mg/dL (7-21) 08/21/16 08:00 Creatinine 0.6 mg/dL (0.5-1.4) 08/21/16 08:00 Est GFR ( Amer) > 60 08/21/16 08:00 Est GFR (Non-Af Amer) > 60 08/21/16 08:00 POC Glucose (mg/dL) 239 mg/dL (65-110) H 08/21/16 11:14 Random Glucose 254 mg/dL (70-110) H 08/21/16 08:00 Hemoglobin A1c 10.0 % (4.2-6.5) H D 08/19/16 14:30 Calcium 9.2 mg/dL (8.4-10.5) 08/21/16 08:00 Total Bilirubin 0.5 mg/dL (0.2-1.3) 08/21/16 08:00 AST 20 U/L (15-39) 08/21/16 08:00 ALT 37 U/L (7-56) 08/21/16 08:00 Alkaline Phosphatase 93 U/L (38-133) 08/21/16 08:00 Total Protein 7.7 g/dL (5.8-8.3) 08/21/16 08:00 Albumin 4.0 g/dL (3.0-4.8) 08/21/16 08:00 Globulin 3.7 gm/dL 08/21/16 08:00 Albumin/Globulin Ratio 1.1 (1.1-1.8) 08/21/16 08:00 Triglycerides 312 mg/dL (35-160) H 08/20/16 08:15 Cholesterol 165 mg/dL (130-200) 08/20/16 08:15 LDL Cholesterol Direct 92 mg/dL (0-129) 08/20/16 08:15 HDL Cholesterol 30 mg/dL (29-60) 08/20/16 08:15 Urine Color Straw (YELLOW) 08/19/16 14:40 Urine Appearance Clear (CLEAR) 08/19/16 14:40 Urine pH 6.0 (4.7-8.0) 08/19/16 14:40 Ur Specific [place] 1.015 (1.005-1.035) 08/19/16 14:40 Urine Protein Negative mg/dL (<30 mg/dL) 08/19/16 14:40 Urine Glucose (UA) >=1000 mg/dL (NEGATIVE) 08/19/16 14:40 Urine Ketones >=80 mg/dL (NEGATIVE) 08/19/16 14:40 Urine Blood Trace-lysed (NEGATIVE) H 08/19/16 14:40 Urine Nitrate Negative (NEGATIVE) 08/19/16 14:40 Urine Bilirubin Negative (NEGATIVE) 08/19/16 14:40 Urine Urobilinogen 0.2 E.U./dL (<1 E.U./dL) 08/19/16 14:40 Ur Leukocyte Esterase Negative Bhavesh/uL (NEGATIVE) 08/19/16 14:40 Urine RBC 2 - 5 /hpf (0-2) 08/19/16 14:40 Urine WBC 2 - 5 /hpf (0-6) 08/19/16 14:40 Ur Epithelial Cells 6 - 8 /hpf (0-5) 08/19/16 14:40 - Hospital Course Hospital Course: 26 yo F w/PMHx of HTN and DM, presents with uncontrolled blood sugars at home, with self reported fingerstick glucose levels 500+. Complaint of generalized weakness, polyuria, polydipsia. Initial anion gap was mildly elevated at 17. +Ketones in UA. Received iv bolus in ER. Repeat anion gap is improved to 14. Continued IV fluids during admission. On floor for dx of dehydration and diabetic hyperglycemia. A1c found to be 10. Started on sliding scale insulin, ACHS accuchecks and home medications including levemir, which was increased to levemir 15u sc Q12. Home Enalapril continued for HTN, and counselled on obesity diet modifications, weight loss and exercise and diabetic diet. RUQ pain and tenderness investigated with U/S and found cholelithiasis without CBD dilation and cholecystitis. Counselled to follow a low fat diet. D/C in good condition with following instructions: You are discharged home. Please follow both a low fat diet and diabetic diet. Please see your primary care physician Dr. Nevin Christensen within a week of leaving the hospital. Please get follow-up care including yearly ophthalmological and foot exams. Please continue your home medications with the exception of Levemir insulin, for which your dose is increased to 12 u subcutaneously every 12 hours and a new paper prescription is provided. Please return to emergency department for worsening of symptoms. Discharge Exam - Head Exam Head Exam: ATRAUMATIC, NORMOCEPHALIC - Eye Exam Eye Exam: EOMI, Normal appearance Pupil Exam: NORMAL ACCOMODATION, PERRL - Respiratory Exam Respiratory Exam: Clear to PA & Lateral, UNREMARKABLE - GI/Abdominal Exam GI & Abdominal Exam: Soft. absent: Tenderness - Exam External exam: absent: Ecchymosis, Erythema - Extremities Exam Extremities exam: normal capillary refill, pedal pulses present - Neurological Exam Neurological exam: Alert, Oriented x3 - Psychiatric Exam Psychiatric exam: Normal Affect, Normal Mood - Skin Skin Exam: Intact, Normal Color Discharge Plan - Discharge Medications Prescriptions: Insulin Detemir [Levemir] 15 units SC Q12 #4 vial - Follow Up Plan Condition: GOOD Disposition: HOME/ ROUTINE Instructions: Dehydration (DC), Dehydration (GEN), Low Fat Diet (DC), Diabetes Mellitus Type 2 in Adults (DC), Fall Prevention for Older Adults (GEN), Basic Carbohydrate Counting (DC) Additional Instructions: You are discharged home. Please follow both a low fat diet and diabetic diet. Please see your primary care physician Dr. Nevin Christensen within a week of leaving the hospital. Please get follow-up care including yearly ophthalmological and foot exams. Please continue your home medications with the exception of Levemir insulin, for which your dose is increased to 12 u subcutaneously every 12 hours and a new paper prescription is provided. Please return to emergency department for worsening of symptoms. Referrals: Vivek Christensen MD [Primary Care Provider] - <Dawit Levin MD - Last Filed: 08/21/16 17:58> Provider - Provider Date of Admission: 08/19/16 16:12 Attending physician: Dawit Levin MD Primary care physician: Critical Access Hospital Course - Lab Results Lab Results: Most Recent Lab Values WBC 3.7 10^3/ul (4.5-11.0) L 08/21/16 08:00 RBC 4.32 10^6/uL (3.5-6.1) 08/21/16 08:00 Hgb 13.2 gm/dL (12.0-16.0) 08/21/16 08:00 Hct 38.0 % (36.0-48.0) 08/21/16 08:00 MCV 88.0 fL (80.0-105.0) 08/21/16 08:00 MCH 30.6 pg (25.0-35.0) 08/21/16 08:00 MCHC 34.7 g/dl (31.0-37.0) 08/21/16 08:00 RDW 12.7 % (11.5-14.5) 08/21/16 08:00 Plt Count 236 10^3/uL (120.0-450.0) 08/21/16 08:00 MPV 10.8 fl (7.0-11.0) 08/21/16 08:00 Gran % 44.3 % (50.0-68.0) L 08/21/16 08:00 Lymph % (Auto) 44.5 % (22.0-35.0) H 08/21/16 08:00 Dane % (Auto) 9.3 % (1.0-6.0) H 08/21/16 08:00 Eos % (Auto) 1.4 % (1.5-5.0) L 08/21/16 08:00 Baso % (Auto) 0.5 % (0.0-3.0) 08/21/16 08:00 Gran # 1.62 (1.4-6.5) 08/21/16 08:00 Lymph # 1.6 (1.2-3.4) 08/21/16 08:00 Dane # 0.3 (0.1-0.6) 08/21/16 08:00 Eos # 0.1 (0.0-0.7) 08/21/16 08:00 Baso # 0.02 K/mm3 (0.0-2.0) 08/21/16 08:00 pCO2 28 mm/Hg (35-45) L 08/19/16 16:35 pO2 84.0 mm/Hg (80-100) 08/19/16 16:35 HCO3 14.4 mmol/L (21-28) L 08/19/16 16:35 ABG pH 7.32 (7.35-7.45) L 08/19/16 16:35 ABG Total CO2 15.3 mmol.L (22-28) L 08/19/16 16:35 ABG O2 Saturation 98.4 % (95-98) H 08/19/16 16:35 ABG O2 Content 18.1 ML/dl (15-23) 08/19/16 16:35 ABG Base Excess -10.2 mmol/L (-2.0-3.0) L 08/19/16 16:35 ABG Hemoglobin 13.4 g/dL (11.7-17.4) 08/19/16 16:35 ABG Carboxyhemoglobin 1.7 % (0.5-1.5) H 08/19/16 16:35 POC ABG HHb (Measured) 1.6 % (0-5) 08/19/16 16:35 ABG Methemoglobin 0.7 % (0.0-3.0) 08/19/16 16:35 ABG O2 Capacity 18.4 mL/dl (16-24) 08/19/16 16:35 VBG pH 7.28 (7.32-7.43) L 08/19/16 14:20 VBG pCO2 48.0 (40-60) 08/19/16 14:20 VBG HCO3 22.6 mmol/l (21-28) 08/19/16 14:20 VBG O2 Sat (Calc) 73.4 % (40-65) H 08/19/16 14:20 VBG Base Excess -4.4 mmol/L (0.0-2.0) L 08/19/16 14:20 Hgb O2 Saturation 96.0 % (95.0-98.0) 08/19/16 16:35 FiO2 21.0 % 08/19/16 16:35 Sodium 134 mmol/L (132-148) 08/21/16 08:00 Potassium 4.2 mmol/L (3.6-5.0) 08/21/16 08:00 Chloride 102 mmol/L (95-110) 08/21/16 08:00 Carbon Dioxide 18 mmol/L (21-33) L 08/21/16 08:00 Anion Gap 18 (10-20) 08/21/16 08:00 BUN 7 mg/dL (7-21) 08/21/16 08:00 Creatinine 0.6 mg/dL (0.5-1.4) 08/21/16 08:00 Est GFR ( Amer) > 60 08/21/16 08:00 Est GFR (Non-Af Amer) > 60 08/21/16 08:00 POC Glucose (mg/dL) 270 mg/dL (65-110) H 08/21/16 16:23 Random Glucose 254 mg/dL (70-110) H 08/21/16 08:00 Hemoglobin A1c 10.0 % (4.2-6.5) H D 08/19/16 14:30 Calcium 9.2 mg/dL (8.4-10.5) 08/21/16 08:00 Total Bilirubin 0.5 mg/dL (0.2-1.3) 08/21/16 08:00 AST 20 U/L (15-39) 08/21/16 08:00 ALT 37 U/L (7-56) 08/21/16 08:00 Alkaline Phosphatase 93 U/L (38-133) 08/21/16 08:00 Total Protein 7.7 g/dL (5.8-8.3) 08/21/16 08:00 Albumin 4.0 g/dL (3.0-4.8) 08/21/16 08:00 Globulin 3.7 gm/dL 08/21/16 08:00 Albumin/Globulin Ratio 1.1 (1.1-1.8) 08/21/16 08:00 Triglycerides 312 mg/dL (35-160) H 08/20/16 08:15 Cholesterol 165 mg/dL (130-200) 08/20/16 08:15 LDL Cholesterol Direct 92 mg/dL (0-129) 08/20/16 08:15 HDL Cholesterol 30 mg/dL (29-60) 08/20/16 08:15 Urine Color Straw (YELLOW) 08/19/16 14:40 Urine Appearance Clear (CLEAR) 08/19/16 14:40 Urine pH 6.0 (4.7-8.0) 08/19/16 14:40 Ur Specific [place] 1.015 (1.005-1.035) 08/19/16 14:40 Urine Protein Negative mg/dL (<30 mg/dL) 08/19/16 14:40 Urine Glucose (UA) >=1000 mg/dL (NEGATIVE) 08/19/16 14:40 Urine Ketones >=80 mg/dL (NEGATIVE) 08/19/16 14:40 Urine Blood Trace-lysed (NEGATIVE) H 08/19/16 14:40 Urine Nitrate Negative (NEGATIVE) 08/19/16 14:40 Urine Bilirubin Negative (NEGATIVE) 08/19/16 14:40 Urine Urobilinogen 0.2 E.U./dL (<1 E.U./dL) 08/19/16 14:40 Ur Leukocyte Esterase Negative Bhavesh/uL (NEGATIVE) 08/19/16 14:40 Urine RBC 2 - 5 /hpf (0-2) 08/19/16 14:40 Urine WBC 2 - 5 /hpf (0-6) 08/19/16 14:40 Ur Epithelial Cells 6 - 8 /hpf (0-5) 08/19/16 14:40 Attending/Attestation - Attestation I have personally seen and examined this patient.: Yes I have fully participated in the care of the patient.: Yes I have reviewed all pertinent clinical information, including history, physical exam and plan: Yes Notes (Text): Patient was seen and examined with medical aide .Agreed with resident assessment and plan. 26 Yrs female with PMH of Obesity,IRDM was admitted with uncontrolled blood sugar.Patient blood sugar has improved.Her Lantus dose has been increased to 15 units BID. She was given education regarding compliance with diabetic food and adherence with insulin regimen.She has been advised to keep record for her blood sugars for PCP.Her insulin dose may need to be adjusted depending on blood sugars. Patient right upper quadrant USG was negative for cholycysytis.She has gall stone on USG, she is asymptomatic at the time of discharge. Management plan was discussed in detail with patient Education was provided.
== END 2016-08-21 17:15 | disposition home or self-care (01) | DRG 295 ==
LOC: ED 13:26 → ERH 16:12 → 5RSO 17:41
PROVIDERS: ADMIT Internal Medicine; ATTEND Internal Medicine
DX: E11.65 Type 2 diabetes mellitus with hyperglycemia (principal); E86.0 Dehydration; I10 Essential (primary) hypertension; K80.20 Calculus of gallbladder without cholecystitis without obstruction; E66.9 Obesity, unspecified; Z68.37 Body mass index [BMI] 37.0-37.9, adult

== ENCOUNTER 2016-10-19 09:53 | Emergency (ER) | payer MEDICAID ==
[2016-10-19 09:54] VITALS: BMI 37.7
[2016-10-19 10:11] VITALS: TEMP 98.1
[2016-10-19] MEDS ORDERED: Sodium Chloride 0.9% 1,000 ML IV STA (10:22)
[2016-10-19] MEDS ORDERED: Insulin Reg-MEDIUM-Coverage IV STA (10:23)
--- NOTE | 2016-10-19 10:37 | ED PDOC ---
Arrival/HPI - General Chief Complaint: High Blood Sugar Time Seen by Provider: 10/19/16 10:03 Historian: Patient - History of Present Illness Narrative History of Present Illness (Text): 10/19/16 10:30 26yo female with history of Diabetes present with complaint of hyperglycemia. States her BS remain high at home despite taking her Levemir and Humulin. states she spoke with her PMD this morning and was told to take her medication. She also notes right leg pain and tingling. States she always get the pain and tingling whenever her sugar is elevated. She denies abdominal pain, nausea, vomiting, polyuria/dipsia/phagia, dizziness, any other complaint. Past Medical History - Provider Review Nursing Documentation Reviewed: Yes - Infectious Disease Hx of Infectious Diseases: None - Tetanus Immunization Tetanus Immunization: Unknown - Cardiac Hx Hypertension: Yes - Pulmonary Hx Respiratory Disorders: No - Neurological Hx Dizziness: Yes - HEENT Hx HEENT Disorder: No - Renal Hx Renal Disorder: No - Endocrine/Metabolic Hx Diabetes Mellitus Type 2: Yes - Hematological/Oncological Hx Blood Disorders: No - Integumentary Hx Dermatological Disorder: No - Musculoskeletal/Rheumatological Hx Falls: No - Gastrointestinal Hx Gastrointestinal Disorders: No - Genitourinary/Gynecological Hx Genitourinary Disorders: No - Psychiatric Hx Anxiety: Yes Hx Bipolar Disorder: Yes Hx Depression: Yes Hx Substance Use: No - Past Surgical History Past Surgical History: Non-Contributing - Anesthesia Hx Anesthesia: No Hx Anesthesia Reactions: No - Suicidal Assessment Feels Threatened In Home Enviroment: No Family/Social History - Physician Review Nursing Documentation Reviewed: Yes Family/Social History: Unknown Family HX Smoking Status: Never Smoked Hx Alcohol Use: No Hx Substance Use: No Allergies/Home Meds Allergies/Adverse Reactions: Allergies No Known Allergies Allergy (Verified 10/19/16 10:12) Home Medications: Home Meds Medication Instructions Recorded Confirmed Cholecalciferol (Vitamin D3) 1 cap PO Sat08/19/16 10/19/16 [Vitamin D3] Empagliflozin [Jardiance] 10 mg PO DAILY 08/19/16 10/19/16 Enalapril Maleate [Vasotec] 5 mg PO DAILY 08/19/16 10/19/16 Insulin NPH Hum/Reg Insulin Hm 5 ml SC DAILY 10/19/16 10/19/16 [Humulin 70/30 70 U/ml-30 U/ml 10 ml] Review of Systems - Physician Review All systems were reviewed & negative as marked: Yes - Review of Systems Constitutional: Normal Eyes: Normal ENT: Normal Respiratory: Normal Cardiovascular: Normal Gastrointestinal: Normal Genitourinary Female: Normal Musculoskeletal: Arthralgias (Right leg pain) Skin: Normal Neurological: Normal Endocrine: Normal Hemo/Lymphatic: Normal Psychiatric: Normal Physical Exam Vital Signs Reviewed: Yes Vital Signs Temp Pulse Resp BP Pulse Ox 10/19/16 13:04 65 16 127/59 L 100 10/19/16 12:17 61 14 123/80 99 10/19/16 10:06 98.1 F 68 18 126/86 99 Temperature: Afebrile Blood Pressure: Normal Pulse: Regular Respiratory Rate: Normal Appearance: Positive for: Well-Appearing, Non-Toxic, Comfortable Pain Distress: None Mental Status: Positive for: Alert and Oriented X 3 Finger Stick Blood Glucose: 334 - Systems Exam Head: Present: Atraumatic, Normocephalic Pupils: Present: PERRL Extroacular Muscles: Present: EOMI Conjunctiva: Present: Normal Mouth: Present: Moist Mucous Membranes Neck: Present: Normal Range of Motion Respiratory/Chest: Present: Clear to Auscultation, Good Air Exchange. No: Respiratory Distress, Accessory Muscle Use Cardiovascular: Present: Regular Rate and Rhythm, Normal S1, S2. No: Murmurs Abdomen: Present: Normal Bowel Sounds. No: Tenderness, Distention, Peritoneal Signs Back: Present: Normal Inspection Upper Extremity: Present: Normal Inspection. No: Cyanosis, Edema Lower Extremity: Present: Normal Inspection, NORMAL PULSES, Normal ROM, Neurovascularly Intact. No: Edema, CALF TENDERNESS, Cyanosis, Cass's Sign, Tenderness, Swelling, Erythema, Temperature Abnormalties Neurological: Present: GCS=15, CN II-XII Intact, Speech Normal Skin: Present: Warm, Dry, Normal Color. No: Rashes Psychiatric: Present: Alert, Oriented x 3, Normal Insight, Normal Concentration Medical Decision Making ED Course and Treatment: 10/19/16 19:21 PT was comfortable in ED. Her BS improved in ED after hydration and Regular insulin was given. On re evaluation she states she feels better. Her lab was unremarkable. Result was DW the pt and she was advised to f/u with her PMD for possible adjustment of her insulin dose. - Lab Interpretations Lab Results: 10/19/16 10:35 10/19/16 10:35 Lab Results 10/19/16 10:41: Urine Color Yellow, Urine Appearance Clear, Urine pH 6.0, Ur Specific [place] 1.010, Urine Protein Negative, Urine Glucose (UA) >=1000, Urine Ketones 40 H, Urine Blood Negative, Urine Nitrate Negative, Urine Bilirubin Negative, Urine Urobilinogen 0.2, Ur Leukocyte Esterase Trace H, Urine RBC Negative, Urine WBC 10 - 15, Ur Epithelial Cells 6 - 8, Urine Bacteria Mod 10/19/16 10:35: Sodium 137, Potassium 3.6, Chloride 104, Carbon Dioxide 22, Anion Gap 15, BUN 5 L, Creatinine 0.5, Est GFR ( Amer) > 60, Est GFR (Non -Af Amer) > 60, Random Glucose 309 H* D, Calcium 9.2, Total Bilirubin 0.6, AST 19, ALT 29, Alkaline Phosphatase 99, Total Protein 7.3, Albumin 4.2, Globulin 3.0, Albumin/Globulin Ratio 1.4 10/19/16 10:35: WBC 3.6 L, RBC 4.48, Hgb 13.7, Hct 39.4, MCV 87.9, MCH 30.6, MCHC 34.8, RDW 12.8, Plt Count 243, MPV 11.7 H, Gran % 41.6 L, Lymph % (Auto) 45.5 H, [place] % (Auto) 10.6 H, Eos % (Auto) 1.7, Baso % (Auto) 0.6, Gran # 1.49, Lymph # 1.6, [place] # 0.4, Eos # 0.1, Baso # 0.02 10/19/16 10:02: POC Glucose (mg/dL) 334 H - Medication Orders Current Medication Orders: Discontinued Medications Sodium Chloride (Sodium Chloride 0.9%) 1,000 mls @ 999 mls/hr IV .Q1H1M STA Stop: 10/19/16 11:22 Last Admin: 10/19/16 10:44 Dose: 999 mls/hr Insulin Human Regular (Humulin R Med) 7 units IV ONCE STA PRN Reason: Protocol Stop: 10/19/16 10:24 Last Admin: 10/19/16 10:44 Dose: 7 units Comments: sugar 334 Insulin Human Regular (Humulin R) Confirm Administered Dose 7 units .ROUTE .STK- MED ONE Stop: 10/19/16 10:43 Last Admin: 10/19/16 10:46 Dose: Disposition/Present on Arrival - Present on Arrival Any Indicators Present on Arrival: No History of DVT/PE: No History of Uncontrolled Diabetes: Yes Urinary Catheter: No History of Decub. Ulcer: No History Surgical Site Infection Following: None - Disposition Have Diagnosis and Disposition been Completed?: Yes Diagnosis: Hyperglycemia, Leg pain Disposition: HOME/ ROUTINE Disposition Time: 12:15 Patient Plan: Discharge Condition: STABLE Discharge Instructions (ExitCare): Diabetic Hyperglycemia (ED) Additional Instructions: Follow up with your Doctor Return to ED for any new or worsening symptoms Referrals: Vivek Christensen MD [Primary Care Provider] - Follow up with primary
[2016-10-19] MEDS ORDERED: Insulin Regular 1 UNITS/0.01 ML ML ONE (10:42)
[2016-10-19 10:43] LABS: URINE BILIRUBIN NEGATIVE (NEGATIVE); URINE BLOOD NEGATIVE (NEGATIVE); URINE GLUCOSE (UA) >=1000 mg/dL (NEGATIVE); URINE LEUKOCYTE ESTERASE TRACE Leu/uL (NEGATIVE); URINE NITRATE NEGATIVE (NEGATIVE); URINE PROTEIN NEGATIVE mg/dL (<30 mg/dL); URINE UROBILINOGEN 0.2 E.U./dL (<1 E.U./dL)
[2016-10-19 10:44] LABS: URINE APPEARANCE CLEAR (CLEAR); URINE COLOR YELLOW (YELLOW)
[2016-10-19 10:50] LABS: BASO # 0.02 K/mm3 (0.0-2.0); BASO % 0.6 % (0.0-3.0); EOS # 0.1 (0.0-0.7); EOS % 1.7 % (1.5-5.0); GRAN # 1.49 (1.4-6.5); GRAN % 41.6 % (50.0-68.0); HEMOGLOBIN 13.7 gm/dL (12.0-16.0); LYMPH # 1.6 (1.2-3.4); LYMPH % 45.5 % (22.0-35.0); MEAN CELL VOLUME 87.9 fL (80.0-105.0); MEAN CORPUSCULAR HEMOGLOBIN 30.6 pg (25.0-35.0); MEAN CORPUSCULAR HGB CONC 34.8 g/dl (31.0-37.0); MEAN PLATELET VOLUME 11.7 fl (7.0-11.0); MONO # 0.4 (0.1-0.6); MONO % 10.6 % (1.0-6.0); PLATELET COUNT 243 10^3/uL (120.0-450.0); RBC 4.48 10^6/uL (3.5-6.1); RED CELL DISTRIBUTION WIDTH 12.8 % (11.5-14.5); WHITE BLOOD COUNT 3.6 10^3/ul (4.5-11.0)
[2016-10-19 11:01] LABS: ALB/GLOB RATIO 1.4 (1.1-1.8); ALBUMIN 4.2 g/dL (3.0-4.8); ALT/SGPT 29 U/L (7-56); AST/SGOT 19 U/L (15-39); BLOOD UREA NITROGEN 5 mg/dL (7-21); CALCIUM 9.2 mg/dL (8.4-10.5); GFR AFRICAN-AMERICAN > 60; GFR NON-AFRICAN AMERICAN > 60
[2016-10-19 11:06] LABS: URINE BACTERIA MOD (NEG); URINE RBC NEGATIVE /hpf (0-2)
[2016-10-19 13:16] VITALS: BP 127/59; PULSE 65; RESP 16; O2SAT 100
== END 2016-10-19 13:04 | disposition home or self-care (01) ==
LOC: ED 09:53
DX: E11.65 Type 2 diabetes mellitus with hyperglycemia (principal); I10 Essential (primary) hypertension; M79.604 Pain in right leg
CPT/HCPCS: 80053; 81001; 82948; 85025; 99285; J7040

== ENCOUNTER 2017-05-27 20:05 | Emergency (ER) | payer MEDICAID ==
[2017-05-27 20:05] VITALS: BMI 35.4
[2017-05-27 20:23] VITALS: PULSE 80; TEMP 98.3; O2SAT 100
--- NOTE | 2017-05-27 20:37 | ED PDOC ---
Arrival/HPI - General Chief Complaint: High Blood Sugar Time Seen by Provider: 05/27/17 20:19 Historian: Patient - History of Present Illness Narrative History of Present Illness (Text): 05/27/17 20:34 Pt is a 26 year old AA, insulin dependent diabetic who presents to the ER complaining of hyperglycemia earlier today at Dr Faulkner's office for a unstable glucose levels x 2 weeks. FS in office was 486 and now in the ED, 294. Pt is extremely compliant with medication, diet and exercise but is having difficulty with regulating medication and sugar levels. Reports diarrhea and nausea x 2 days along with frequent thirst and urination especially throughout the night. Denies cp, sob, vomiting, fever, cough, recent illness. The patient states she has never seen an welding machine operator thermit or acting instructor to date. 05/27/17 20:44 Time/Duration: > week Symptom Onset: Gradual Symptom Course: Unchanged, Intermittent Quality: Unable to Describe Severity Level: Mild Activities at Onset: Rest, Light Context: Home Past Medical History - Provider Review Nursing Documentation Reviewed: Yes - Travel History Have you recently traveled outside [place] w/in the past 3 mons?: No - Infectious Disease Hx of Infectious Diseases: None - Tetanus Immunization Tetanus Immunization: Unknown - Cardiac Hx Hypertension: Yes - Pulmonary Hx Respiratory Disorders: No - Neurological Hx Dizziness: Yes - HEENT Hx HEENT Disorder: No - Renal Hx Renal Disorder: No - Endocrine/Metabolic Hx Diabetes Mellitus Type 1: Yes - Hematological/Oncological Hx Blood Disorders: No - Integumentary Hx Dermatological Disorder: No - Musculoskeletal/Rheumatological Hx Falls: No - Gastrointestinal Hx Gastrointestinal Disorders: No - Genitourinary/Gynecological Hx Genitourinary Disorders: No - Psychiatric Hx Anxiety: Yes Hx Bipolar Disorder: Yes Hx Depression: Yes Hx Substance Use: No - Past Surgical History Past Surgical History: Non-Contributing - Anesthesia Hx Anesthesia: No Hx Anesthesia Reactions: No - Suicidal Assessment Feels Threatened In Home Enviroment: No Family/Social History - Physician Review Nursing Documentation Reviewed: Yes Family/Social History: Diabetes, Hypertension Smoking Status: Never Smoked Hx Alcohol Use: No Hx Substance Use: No Allergies/Home Meds Allergies/Adverse Reactions: Allergies onion Allergy (Intermediate, Verified 05/28/17 08:58) ANAPHYLAXIS HIVES Home Medications: Home Meds Medication Instructions Recorded Confirmed Insulin Glargine,Hum.rec.anlog 20 unit SQ ACHS 03/28/17 05/28/17 [Lantus] Insulin Lispro [Humalog (Insulin 15 unit SQ BID PRN 03/28/17 05/28/17 Lispro)] Review of Systems - Review of Systems Constitutional: Fatigue Eyes: Vision Changes (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 ) ENT: Normal Respiratory: Normal Cardiovascular: Normal Gastrointestinal: Normal Genitourinary Female: Normal Musculoskeletal: Normal, Other (right arm numbness associated with urine urgency and frequency) Skin: Normal Neurological: Normal Endocrine: Polyuria, Polydipsia Hemo/Lymphatic: Normal Psychiatric: Normal Physical Exam Vital Signs Temp Pulse Resp BP Pulse Ox 05/27/17 22:30 80 17 146/82 100 05/27/17 20:22 98.3 F 80 20 162/82 H 100 Temperature: Afebrile Blood Pressure: Hypertensive Pulse: Regular Respiratory Rate: Normal Appearance: Positive for: Well-Appearing, Non-Toxic, Comfortable Pain Distress: None Mental Status: Positive for: Alert and Oriented X 3 Finger Stick Blood Glucose: 294 - Systems Exam Head: Present: Atraumatic, Normocephalic Pupils: Present: PERRL Extroacular Muscles: Present: EOMI Conjunctiva: Present: Normal Mouth: Present: Moist Mucous Membranes Neck: Present: Normal Range of Motion Respiratory/Chest: Present: Clear to Auscultation, Good Air Exchange. No: Respiratory Distress, Accessory Muscle Use Cardiovascular: Present: Regular Rate and Rhythm, Normal S1, S2. No: Murmurs Abdomen: Present: Normal Bowel Sounds. No: Tenderness, Distention, Peritoneal Signs Back: Present: Normal Inspection Upper Extremity: Present: Normal Inspection, Normal ROM, NORMAL PULSES, Capillary Refill < 2s. No: Cyanosis, Edema Lower Extremity: Present: Normal Inspection, NORMAL PULSES, Normal ROM, Capillary Refill < 2 s. No: Edema Neurological: Present: GCS=15, CN II-XII Intact, Speech Normal, Motor Func Grossly Intact, Normal Sensory Function, Gait Normal Skin: Present: Warm, Dry, Normal Color. No: Rashes Psychiatric: Present: Alert, Oriented x 3, Normal Insight, Normal Concentration Medical Decision Making ED Course and Treatment: 05/27/17 20:48 Impression Pt is a 26 year olf AA, insulin dependent diabetic who presents to the ER complaining of hyperglycemia earlier today at Dr Elimer's office for a unstable glucose levels x 2 weeks. Plan urine hcg cbc, cmp, ua, ecg IVF 1L bolus Assess and dispo Progress Note Glucose trending down from earlier today, last FS 193 Advised pt to see welding machine operator thermit and acting instructor to ascertain proper use of medication and other factors influencing glucose levels Pt describes a high level of compliance and monitoring of her diabetes however she is experiencing polydipsia and polyuria too frequently despite taking her insulin daily before meals 05/27/17 22:40 - Lab Interpretations Lab Results: 05/27/17 21:35 05/27/17 21:35 Lab Results 05/27/17 21:35: Urine Color Light yellow, Urine Appearance Clear, Urine pH 6.0, Ur Specific [place] 1.010, Urine Protein Negative, Urine Glucose (UA) >=1000, Urine Ketones Negative, Urine Blood Negative, Urine Nitrate Negative, Urine Bilirubin Negative, Urine Urobilinogen 0.2, Ur Leukocyte Esterase Negative, Urine HCG, Qual Negative 05/27/17 21:35: Sodium 139, Potassium 4.2, Chloride 100, Carbon Dioxide 27, Anion Gap 17, BUN 11, Creatinine 0.6 L, Est GFR ( Amer) > 60, Est GFR ( Non-Af Amer) > 60, Random Glucose 265 H, Calcium 10.5, Total Bilirubin 0.4, AST 20, ALT 27, Alkaline Phosphatase 86, Total Protein 7.7, Albumin 4.5, Globulin 3.2, Albumin/Globulin Ratio 1.4 05/27/17 21:35: WBC 5.7 D, RBC 4.49, Hgb 14.1, Hct 40.4, MCV 90.0, MCH 31.4, MCHC 34.9, RDW 12.6, Plt Count 269, MPV 11.6 H, Gran % 41.9 L, Lymph % (Auto) 48.2 H, [place] % (Auto) 7.4 H, Eos % (Auto) 2.1, Baso % (Auto) 0.4, Gran # 2.38, Lymph # (Auto) 2.7, [place] # (Auto) 0.4, Eos # (Auto) 0.1, Baso # (Auto) 0.02 - Medication Orders Current Medication Orders: Discontinued Medications Sodium Chloride (Sodium Chloride 0.9%) 500 mls @ 999 mls/hr IV .Q31M STA Stop: 05/27/17 21:19 Last Admin: 05/27/17 21:46 Dose: 999 mls/hr eMAR Start Stop Document 05/27/17 21:46 CNR (Rec: 05/27/17 21:46 CNR [id number]) Intravenous Solution Start Date 05/27/17 Start Time 21:46 Disposition/Present on Arrival - Present on Arrival Any Indicators Present on Arrival: Yes History of DVT/PE: No History of Uncontrolled Diabetes: Yes Urinary Catheter: No History of Decub. Ulcer: No History Surgical Site Infection Following: None - Disposition Have Diagnosis and Disposition been Completed?: Yes Diagnosis: Hyperglycemia Disposition: HOME/ ROUTINE Disposition Time: 00:26 Patient Plan: Discharge Condition: GOOD Discharge Instructions (ExitCare): Hyperglycemia, Adult (DC), Diabetes and Diet Additional Instructions: Deaearnest Pedro, Please follow up with your Primary doctor in the next day to discuss see an welding machine operator thermit and acting instructor to help you manage your diabetes and medication. Continue to monitor you glucose levels and take the insulin as you have been. Should you feel that your symptoms are worsening or you have a blood glucose level that is excessively, return to the emergency department immediately. All the best in your recovery and finding the answers you need. Referrals: [employer] Luca Rerhina, [Primary Care Provider] - Follow up with primary Forms: [employer] (Filipino)
[2017-05-27] MEDS ORDERED: Sodium Chloride 0.9% 500 ML IV STA (20:49)
[2017-05-27 22:03] LABS: BASO # 0.02 K/mm3 (0.0-2.0); BASO % 0.4 % (0.0-3.0); EOS # 0.1 (0.0-0.7); EOS % 2.1 % (1.5-5.0); GRAN # 2.38 (1.4-6.5); GRAN % 41.9 % (50.0-68.0); HEMOGLOBIN 14.1 g/dL (12.0-16.0); LYMPH # 2.7 (1.2-3.4); LYMPH % 48.2 % (22.0-35.0); MEAN CORPUSCULAR HEMOGLOBIN 31.4 pg (25.0-35.0); MEAN CORPUSCULAR HGB CONC 34.9 g/dl (31.0-37.0); MEAN PLATELET VOLUME 11.6 fl (7.0-11.0); MONO # 0.4 (0.1-0.6); MONO % 7.4 % (1.0-6.0); RBC 4.49 10^6/uL (3.5-6.1); RED CELL DISTRIBUTION WIDTH 12.6 % (11.5-14.5); WHITE BLOOD COUNT 5.7 10^3/ul (4.5-11.0)
[2017-05-27 22:05] LABS: URINE BILIRUBIN NEGATIVE (NEGATIVE); URINE BLOOD NEGATIVE (NEGATIVE); URINE GLUCOSE (UA) >=1000 mg/dL (NEGATIVE); URINE LEUKOCYTE ESTERASE NEGATIVE Leu/uL (NEGATIVE); URINE NITRATE NEGATIVE (NEGATIVE); URINE PROTEIN NEGATIVE mg/dL (<30 mg/dL); URINE UROBILINOGEN 0.2 E.U./dL (<1 E.U./dL)
[2017-05-27 22:06] LABS: URINE APPEARANCE CLEAR (CLEAR); URINE COLOR LIGHT YELLOW (YELLOW)
[2017-05-27 22:14] LABS: ALB/GLOB RATIO 1.4 (1.1-1.8); ALBUMIN 4.5 g/dL (3.0-4.8); ALT/SGPT 27 U/L (7-56); AST/SGOT 20 U/L (14-36); BLOOD UREA NITROGEN 11 mg/dL (7-21); CALCIUM 10.5 mg/dL (8.4-10.5); GFR AFRICAN-AMERICAN > 60; GFR NON-AFRICAN AMERICAN > 60
[2017-05-27 22:16] LABS: HCG,QUALITATIVE URINE NEGATIVE (NEGATIVE)
[2017-05-28 01:34] VITALS: BP 146/82; RESP 17
--- NOTE | 2017-05-29 02:46 | CARD ---
APPROVED REPORT EKG Measurement Heart [id number] <Conclusion> Normal sinus rhythm Normal ECG
== END 2017-05-28 00:52 | disposition home or self-care (01) ==
LOC: ED 20:05
DX: E10.65 Type 1 diabetes mellitus with hyperglycemia (principal); Z79.4 Long term (current) use of insulin; I10 Essential (primary) hypertension
CPT/HCPCS: 80053; 81003; 84703; 85025; 93005; 99284; J7040

== ENCOUNTER 2017-05-28 08:45 | Emergency (ER) | payer MEDICAID ==
[2017-05-28 09:02] VITALS: TEMP 98.4
[2017-05-28 09:03] VITALS: BMI 34.0
--- NOTE | 2017-05-28 09:18 | ED PDOC ---
Arrival/HPI - General Chief Complaint: High Blood Sugar Time Seen by Provider: 05/28/17 09:01 Historian: Patient - History of Present Illness Narrative History of Present Illness (Text): 05/28/17 09:10 Mayela Christopher is a 26 year old female, whose past medical history includes hypertension and diabetes I (on Humalog and Lantus), who presents to the emergency department complaining of high sugar level. Patient was seen on the emergency department yesterday and d/c but advised to come back if sugar level is high. Patient is currently asymptomatic with no complaints. PMD: Dr. Christensen Time/Duration: Prior to Arrival Symptom Onset: Sudden Symptom Course: Unchanged Past Medical History - Provider Review Nursing Documentation Reviewed: Yes - Infectious Disease Hx of Infectious Diseases: None - Tetanus Immunization Tetanus Immunization: Unknown - Cardiac Hx Hypertension: Yes - Pulmonary Hx Respiratory Disorders: No - Neurological Hx Dizziness: Yes - HEENT Hx HEENT Disorder: No - Renal Hx Renal Disorder: No - Endocrine/Metabolic Hx Diabetes Mellitus Type 1: Yes - Hematological/Oncological Hx Blood Disorders: No - Integumentary Hx Dermatological Disorder: No - Musculoskeletal/Rheumatological Hx Falls: No - Gastrointestinal Hx Gastrointestinal Disorders: No - Genitourinary/Gynecological Hx Genitourinary Disorders: No - Psychiatric Hx Anxiety: Yes Hx Bipolar Disorder: Yes Hx Depression: Yes Hx Substance Use: No - Past Surgical History Past Surgical History: Non-Contributing - Anesthesia Hx Anesthesia: No Hx Anesthesia Reactions: No - Suicidal Assessment Feels Threatened In Home Enviroment: No Family/Social History - Physician Review Nursing Documentation Reviewed: Yes Family/Social History: Unknown Family HX Smoking Status: Never Smoked Hx Alcohol Use: No Hx Substance Use: No Allergies/Home Meds Allergies/Adverse Reactions: Allergies onion Allergy (Intermediate, Verified 05/28/17 08:58) ANAPHYLAXIS HIVES Home Medications: Home Meds Medication Instructions Recorded Confirmed Insulin Glargine,Hum.rec.anlog 20 unit SQ ACHS 03/28/17 05/28/17 [Lantus] Insulin Lispro [Humalog (Insulin 15 unit SQ BID PRN 03/28/17 05/28/17 Lispro)] Review of Systems - Review of Systems Constitutional: absent: Fevers Respiratory: absent: SOB Cardiovascular: absent: Chest Pain Gastrointestinal: absent: Abdominal Pain Genitourinary Female: absent: Dysuria Musculoskeletal: absent: Back Pain Skin: absent: Rash Neurological: absent: Headache Endocrine: Other (high blood sugar) Hemo/Lymphatic: absent: Easy Bleeding Physical Exam Vital Signs Reviewed: Yes Vital Signs Temp Pulse Resp BP Pulse Ox 05/28/17 11:14 62 16 120/86 100 05/28/17 08:58 98.4 F 68 18 118/78 99 Temperature: Afebrile Blood Pressure: Normal Pulse: Regular Respiratory Rate: Normal Appearance: Positive for: Well-Appearing, Non-Toxic, Comfortable Pain Distress: None Mental Status: Positive for: Alert and Oriented X 3 Finger Stick Blood Glucose: 384 - Systems Exam Head: Present: Atraumatic, Normocephalic Pupils: Present: PERRL Extroacular Muscles: Present: EOMI Conjunctiva: Present: Normal Respiratory/Chest: Present: Clear to Auscultation, Good Air Exchange. No: Respiratory Distress, Accessory Muscle Use Cardiovascular: Present: Regular Rate and Rhythm, Normal S1, S2. No: Murmurs Neurological: Present: GCS=15, CN II-XII Intact, Speech Normal Skin: Present: Warm, Dry, Normal Color. No: Rashes Psychiatric: Present: Alert, Oriented x 3, Normal Insight, Normal Concentration Medical Decision Making ED Course and Treatment: 05/28/17 Impression: 26 year old female with unremarkable physical exam complaining of high blood sugar. Plan: -- Labs -- Urinalysis -- Reassess and disposition Progress Notes: 05/28/17 10:20 Patient is resting comfortably, and is in no acute distress. Patient denies any vaginal discharge. Her Urinalysis shows trichtomounus and no evidence of DKA. Patient was instructed to follow up with PMD. - Lab Interpretations Lab Results: 05/28/17 09:20 05/28/17 09:20 Lab Results 05/28/17 10:04: POC Glucose (mg/dL) 359 H 05/28/17 09:20: Sodium 135, Potassium 4.2, Chloride 101, Carbon Dioxide 22, Anion Gap 16, BUN 7, Creatinine 0.6 L, Est GFR ( Amer) > 60, Est GFR (Non -Af Amer) > 60, Random Glucose 478 H* D, Calcium 9.1, Total Bilirubin 0.5, AST 16, ALT 24, Alkaline Phosphatase 80, Total Protein 6.6, Albumin 3.8, Globulin 2.8, Albumin/Globulin Ratio 1.3 05/28/17 09:20: PT 11.8, INR 1.03, APTT 25.0 L 05/28/17 09:20: WBC 4.6, RBC 4.19, Hgb 12.9, Hct 37.9, MCV 90.5, MCH 30.8, MCHC 34.0, RDW 12.5, Plt Count 220, MPV 11.5 H, Gran % 49.8 L, Lymph % (Auto) 42.2 H , [place] % (Auto) 6.1 H, Eos % (Auto) 1.5, Baso % (Auto) 0.4, Gran # 2.27, Lymph # (Auto) 1.9, [place] # (Auto) 0.3, Eos # (Auto) 0.1, Baso # (Auto) 0.02 05/28/17 09:20: pO2 70 H, VBG pH 7.32, VBG pCO2 46.0, VBG HCO3 23.7, VBG O2 Sat (Calc) 97.3 H, VBG Base Excess -2.6 L 05/28/17 09:00: Urine Color Yellow, Urine Appearance Clear, Urine pH 5.5, Ur Specific [place] <= 1.005, Urine Protein Negative, Urine Glucose (UA) >=1000, Urine Ketones Trace H, Urine Blood Negative, Urine Nitrate Negative, Urine Bilirubin Negative, Urine Urobilinogen 0.2, Ur Leukocyte Esterase Trace H, Urine RBC Negative, Urine WBC 5 - 10, Ur Epithelial Cells 3 - 4, Urine Bacteria Small, Urine Other Trichomonas, Urine HCG, Qual Negative I have reviewed the lab results: Yes - Medication Orders Current Medication Orders: Discontinued Medications Sodium Chloride (Sodium Chloride 0.9%) 1,000 mls @ 999 mls/hr IV .Q1H1M STA Stop: 05/28/17 10:25 Last Admin: 05/28/17 09:27 Dose: 999 mls/hr eMAR Start Stop Document 05/28/17 09:27 SE (Rec: 05/28/17 09:27 SE [id number]) Intravenous Solution Start Date 05/28/17 Start Time 09:27 Insulin Human Regular (Humulin R) 5 units IV STAT STA Stop: 05/28/17 09:59 Last Admin: 05/28/17 10:12 Dose: Insulin Human Regular (Humulin R) 4 units IV STAT STA Stop: 05/28/17 10:11 Last Admin: 05/28/17 10:12 Dose: 4 units eMAR Start Stop Document 05/28/17 10:12 SE (Rec: 05/28/17 10:12 SE [id number]) Intravenous Solution Start Date 05/28/17 Start Time 10:12 MAR Blood Glucose Document 05/28/17 10:12 SE (Rec: 05/28/17 10:12 SE [id number]) Blood Glucose Finger Stick Blood Glucose (70-120) 359 - Scribe Statement The provider has reviewed the documentation as recorded by the [employer] Sarah Jones Provider Scribe Attestation: All medical record entries made by the Scribe were at my direction and personally dictated by me. I have reviewed the chart and agree that the record accurately reflects my personal performance of the history, physical exam, medical decision making, and the department course for this patient. I have also personally directed, reviewed, and agree with the discharge instructions and disposition. Disposition/Present on Arrival - Present on Arrival Any Indicators Present on Arrival: No History of DVT/PE: No History of Uncontrolled Diabetes: Yes Urinary Catheter: No History of Decub. Ulcer: No History Surgical Site Infection Following: None - Disposition Have Diagnosis and Disposition been Completed?: Yes Diagnosis: Hyperglycemia, Trichomonal urethritis Disposition: HOME/ ROUTINE Disposition Time: 11:00 Condition: STABLE Discharge Instructions (ExitCare): Trichomoniasis, Hyperglycemia, Adult Additional Instructions: follow up with your doctor. return to er with worsening symptoms or concerns. Prescriptions: Metronidazole [Flagyl] 500 mg PO BID #10 tablet Referrals: Vivek Christensen MD [Primary Care Provider] - Follow up with primary Forms: [employer] (Maldivian), WORK NOTE
[2017-05-28 09:19] LABS: HCG,QUALITATIVE URINE NEGATIVE (NEGATIVE)
[2017-05-28] MEDS ORDERED: Sodium Chloride 0.9% 1,000 ML IV STA (09:25)
[2017-05-28 09:35] LABS: BASO # 0.02 K/mm3 (0.0-2.0); BASO % 0.4 % (0.0-3.0); EOS # 0.1 (0.0-0.7); EOS % 1.5 % (1.5-5.0); GRAN # 2.27 (1.4-6.5); GRAN % 49.8 % (50.0-68.0); HEMOGLOBIN 12.9 g/dL (12.0-16.0); LYMPH # 1.9 (1.2-3.4); LYMPH % 42.2 % (22.0-35.0); MEAN CELL VOLUME 90.5 fl (80.0-105.0); MEAN CORPUSCULAR HEMOGLOBIN 30.8 pg (25.0-35.0); MEAN PLATELET VOLUME 11.5 fl (7.0-11.0); MONO # 0.3 (0.1-0.6); MONO % 6.1 % (1.0-6.0); RBC 4.19 10^6/uL (3.5-6.1); RED CELL DISTRIBUTION WIDTH 12.5 % (11.5-14.5); WHITE BLOOD COUNT 4.6 10^3/ul (4.5-11.0)
[2017-05-28 09:37] LABS: VENOUS BLOOD GAS BASE EXCESS -2.6 mmol/L (0.0-2.0); VENOUS BLOOD GAS PO2 70 mm/Hg (30-55); VENOUS BLOOD PH 7.32 (7.32-7.43)
[2017-05-28 09:40] LABS: PH,URINE 5.5 (4.7-8.0); URINE APPEARANCE CLEAR (CLEAR); URINE BILIRUBIN NEGATIVE (NEGATIVE); URINE BLOOD NEGATIVE (NEGATIVE); URINE COLOR YELLOW (YELLOW); URINE GLUCOSE (UA) >=1000 mg/dL (NEGATIVE); URINE LEUKOCYTE ESTERASE TRACE Leu/uL (NEGATIVE); URINE NITRATE NEGATIVE (NEGATIVE); URINE PROTEIN NEGATIVE mg/dL (<30 mg/dL); URINE UROBILINOGEN 0.2 E.U./dL (<1 E.U./dL)
[2017-05-28 09:56] LABS: ALB/GLOB RATIO 1.3 (1.1-1.8); ALBUMIN 3.8 g/dL (3.0-4.8); ALT/SGPT 24 U/L (7-56); AST/SGOT 16 U/L (14-36); BLOOD UREA NITROGEN 7 mg/dL (7-21); CALCIUM 9.1 mg/dL (8.4-10.5); GFR AFRICAN-AMERICAN > 60; GFR NON-AFRICAN AMERICAN > 60
[2017-05-28 09:58] LABS: INR 1.03 (0.93-1.08); PROTHROMBIN TIME 11.8 SECONDS (9.4-12.5)
[2017-05-28] MEDS ORDERED: Insulin Regular 1 UNITS/0.01 ML ML IV STA ×2 (09:58→10:10)
[2017-05-28 10:04] LABS: URINE BACTERIA SMALL (NEG); URINE RBC NEGATIVE /hpf (0-2)
[2017-05-28 11:16] VITALS: BP 120/86; PULSE 62; RESP 16; O2SAT 100
== END 2017-05-28 11:14 | disposition home or self-care (01) ==
LOC: ED 08:45
DX: E10.65 Type 1 diabetes mellitus with hyperglycemia (principal); Z79.4 Long term (current) use of insulin; A59.03 Trichomonal cystitis and urethritis; I10 Essential (primary) hypertension
CPT/HCPCS: 80053; 81001; 82803; 82948; 84703; 85025; 85610; 85730; 87086; 99284; J7040